=== PATIENT | male | born 1955 | race Caucasian/White ===

== ENCOUNTER 2018-04-25 20:47 | Inpatient (IN) | payer OTHER ==
[~2018-04-25] VITALS: Ht 175.3 cm; Wt 86.2 kg
[2018-04-25] MEDS ORDERED: PLAVIX75 MG (20:58)
[2018-04-25] MEDS ORDERED: BITREX (20:59)
[2018-04-25] MEDS ORDERED: VITAMIN B122500 MCG (20:59)
[2018-04-30] MEDS ORDERED: PROTONIX40 MG PO (13:07)
[2018-04-30] MEDS ORDERED: PEPCID20 MG PO (13:08)
== END 2018-04-30 13:47 | disposition home or self-care (01) | DRG 381 ==
LOC: ER 20:47 → ICU-2 04-26 06:58 → SEC-K 04-28 09:14 → MEDI 04-28 09:21
PROC: 30233N1 Transfusion of Nonautologous Red Blood Cells into Peripheral Vein, Percutaneous Approach (ICD-10-PCS; principal; 2018-04-27)
DX: K22.11 Ulcer of esophagus with bleeding (principal); D62 Acute posthemorrhagic anemia; E72.12 Methylenetetrahydrofolate reductase deficiency; D68.61 Antiphospholipid syndrome; K22.6 Gastro-esophageal laceration-hemorrhage syndrome; R04.0 Epistaxis; Z86.73 Personal history of transient ischemic attack (TIA), and cerebral infarction without residual deficits

== ENCOUNTER 2018-05-03 18:59 | Emergency (ER) | payer OTHER ==
[~2018-05-03] VITALS: Ht 175.3 cm; Wt 83.9 kg
[~2018-05-03 18:59] MED LIST: BITREX; PEPCID20 MG PO; PLAVIX75 MG; PROTONIX40 MG PO; VITAMIN B122500 MCG
== END 2018-05-03 22:11 | disposition home or self-care (01) ==
LOC: ER 18:59
DX: L03.113 Cellulitis of right upper limb (principal)

== ENCOUNTER 2018-07-24 06:11 | Outpatient (CLI) | payer OTHER | END 2018-07-24 06:31 | disposition home or self-care (01) | LOC: LAB 06:11 | DX: D68.59 Other primary thrombophilia (principal); D68.61 Antiphospholipid syndrome; E72.12 Methylenetetrahydrofolate reductase deficiency; E72.11 Homocystinuria; D51.1 Vitamin B12 deficiency anemia due to selective vitamin B12 malabsorption with proteinuria; D50.8 Other iron deficiency anemias; D51.8 Other vitamin B12 deficiency anemias; I10 Essential (primary) hypertension; E11.9 Type 2 diabetes mellitus without complications; E78.2 Mixed hyperlipidemia; E55.9 Vitamin D deficiency, unspecified; E03.8 Other specified hypothyroidism; D68.62 Lupus anticoagulant syndrome; I63.89 Other cerebral infarction ==

== ENCOUNTER → 2018-08-25 | Emergency (ER) | payer OTHER ==
[~2018-08-25] VITALS: Ht 175.3 cm; Wt 88.5 kg
[~2018-08-25] MED LIST changes: +ZANTAC150 M3
== END | disposition left against medical advice (07) ==
LOC: ER 14:53
DX: Z53.20 Procedure and treatment not carried out because of patient's decision for unspecified reasons (principal)

== ENCOUNTER 2019-07-21 07:07 | Outpatient (CLI) | payer OTHER | END 2019-07-21 07:23 | disposition home or self-care (01) | LOC: LAB 07:07 | DX: E78.2 Mixed hyperlipidemia (principal); D68.59 Other primary thrombophilia; E72.12 Methylenetetrahydrofolate reductase deficiency; E72.11 Homocystinuria; D51.1 Vitamin B12 deficiency anemia due to selective vitamin B12 malabsorption with proteinuria; I63.89 Other cerebral infarction; D50.8 Other iron deficiency anemias; D51.8 Other vitamin B12 deficiency anemias; I10 Essential (primary) hypertension; E55.9 Vitamin D deficiency, unspecified; K90.89 Other intestinal malabsorption; E03.8 Other specified hypothyroidism; E11.9 Type 2 diabetes mellitus without complications ==

== ENCOUNTER 2023-04-17 12:49 | Outpatient (CLI) | payer OTHER | END 2023-04-17 12:55 | disposition home or self-care (01) | LOC: NUCLEAR 12:49 | PROVIDERS: ATTEND Internal Medicine Hematology & Oncology | DX: M81.0 Age-related osteoporosis without current pathological fracture (principal) ==

== ENCOUNTER → 2024-08-29 10:33 | Outpatient (CLI) | payer OTHER ==
[2024-08-29 11:53] LABS: HEMATOCRIT 43.1 % (39.0-48.0); HEMOGLOBIN 14.4 g/dL (13-16.00); MEAN CELL VOLUME 93.9 fL (80.0-100.00); MEAN CORPUSCULAR HEMOGLOBIN 31.4 pg (27.00-32.0); MEAN CORPUSCULAR HGB CONC 33.4 g/dl (32.0-36.0); PLATELET COUNT 258 K/uL (150-450); RED BLOOD COUNT 4.59 M/uL (4.00-6.00); RED CELL DISTRIBUTION WIDTH 13.2 % (11.5-14.5)
[2024-08-29 11:54] LABS: PH,URINE 5.5 (5.0-8.0); URINE APPEARANCE Clear; URINE BILIRRUBIN Negative (NEGATIVE); URINE BLOOD Negative; URINE COLOR Yellow; URINE GLUCOSE Negative (NEGATIVE); URINE KETONE Negative (NEGATIVE); URINE LEUKOCYTE Negative; URINE NITRATE Negative; URINE PROTEIN Negative (NEGATIVE); URINE UROBILINOGEN 0.2 E.U./dl
[2024-08-29 11:57] LABS: URINE BACTERIA 4.8 uL (0.0-1933); URINE EPITHELIAL CELLS 1.5 uL (0.0-38.8)
[2024-08-29 12:02] LABS: URINE CAST 0.29 uL (0.0-1.40); URINE RBC 0.8 uL (0.0-20.8); URINE WBC 0.6 uL (0.0-23.2)
[2024-08-29 13:11] LABS: ALBUMIN 3.5 gm/dL (3.4-5.0); BILIRUBIN TOTAL 0.53 mg/dL (0.3-1.2); CALCIUM 9.2 mg/dL (8.5-10.1); GFR 74.09; GLOBULINA 3.9 G/DL (2.4-3.5); PHOSPHOROUS 2.8 mg/dL (2.5-4.9); POTASSIUM 4.17 mEq/L (3.5-5.1); PROSTATIC SPECIFIC ANTIGEN 3.71 NG/ML (0.010-4.00); TOTAL PROTEIN 7.4 gm/dL (6.4-8.2)
[2024-08-29 13:18] LABS: URINE PROT QUANT 24HR 12.5 MG/DL
[2024-08-29 13:22] LABS: CREATINE CLEARANCE 126.9 ML/MIN (97-137)
[2024-08-31 11:59] LABS: FOLIC ACID > 20.00 ng/ml (4.78-20); VITAMIN D3 25 HYDROXY 43.81 ng/ml (30-120)
== END | disposition home or self-care (01) ==
LOC: LAB 10:33
PROVIDERS: ATTEND Internal Medicine Hematology & Oncology
DX: D68.9 Coagulation defect, unspecified (principal); D51.1 Vitamin B12 deficiency anemia due to selective vitamin B12 malabsorption with proteinuria; I63.9 Cerebral infarction, unspecified; R80.8 Other proteinuria; D50.8 Other iron deficiency anemias; I10 Essential (primary) hypertension; R74.02 Elevation of levels of lactic acid dehydrogenase [LDH]; K76.89 Other specified diseases of liver; D51.8 Other vitamin B12 deficiency anemias; E55.9 Vitamin D deficiency, unspecified; R97.0 Elevated carcinoembryonic antigen [CEA]; N18.30 Chronic kidney disease, stage 3 unspecified; E11.21 Type 2 diabetes mellitus with diabetic nephropathy; D63.1 Anemia in chronic kidney disease; N30.00 Acute cystitis without hematuria; E03.9 Hypothyroidism, unspecified

== ENCOUNTER 2025-01-27 07:27 | Outpatient (CLI) | payer OTHER | END 2025-01-27 07:36 | disposition home or self-care (01) | LOC: RAD 07:27 | PROVIDERS: ATTEND Internal Medicine Gastroenterology | DX: R13.10 Dysphagia, unspecified (principal) ==